=== PATIENT | female | born 1990 | race Caucasian/White ===

== ENCOUNTER 2016-12-18 16:28 | Emergency (ER) | payer OTHER ==
[~2016-12-18] VITALS: Ht 160 cm; Wt 68.0 kg
[~2016-12-18 16:28] MED LIST: IBUP200T77 PO; NAPR500T3 PO
[2016-12-18 16:36] VITALS: BP 126/80
[2016-12-18 16:52] LABS: BILIRUBIN,URINE NEGATIVE (NEG); GLUCOSE,URINE NEGATIVE (NEG); NITRITE,URINE NEGATIVE (NEG); PH,URINE 5.5; PROTEIN,URINE NEGATIVE (NEG-TRACE); UROBILINOGEN,URINE 0.2 mg/dL (0.2 mg/dL)
--- NOTE | 2016-12-18 16:53 | PHYS DOC ---
Past Medical History Past Medical History: Hyperthyroid Additional Past Medical Histor: SVT, graves, heart murmur Past Surgical History: Other Additional Past Surgical Histo: THYROID REMOVAL, L ELBOW, L KNEE Alcohol Use: None Drug Use: None Adult General Chief Complaint Chief Complaint: PAIN ON URINATION [facility] HPI Patient is a 26 year old female with no significant medical history who presents with dysuria for 5 days. Patient denies any hematuria. Denies any urgency or frequency. Denies flank pain, abdominal pain nausea vomiting. Denies any chance she is , she states her last menstrual cycle was October, and she is on control and her periods are irregular. Review of Systems Review of Systems Constitutional: Denies fever or chills [] Eyes: Denies change in visual acuity, redness, or eye pain [] HENT: Denies nasal congestion or sore throat [] Respiratory: Denies cough or shortness of breath [] Cardiovascular: No additional information not addressed in HPI [] GI: Denies abdominal pain, nausea, vomiting, bloody stools or diarrhea [] : Dysuria Musculoskeletal: Denies back pain or joint pain [] Integument: Denies rash or skin lesions [] Neurologic: Denies headache, focal weakness or sensory changes [] Endocrine: Denies polyuria or polydipsia [] Allergies Allergies Allergies Coded Allergies Type Severity Reaction Last Updated Verified neomycin Allergy Intermediate rash 12/09/13 Yes codeine Adverse Reaction Intermediate nausea 09/08/14 Yes Physical Exam Physical Exam Constitutional: Well developed, well nourished, no acute distress, non-toxic appearance. [] HENT: Normocephalic, atraumatic, bilateral external ears normal, oropharynx moist, no oral exudates, nose normal. [] Eyes: PERRLA, EOMI, conjunctiva normal, no discharge. [] Neck: Normal range of motion, no tenderness, supple, no stridor. [] Cardiovascular:Heart rate regular rhythm, no murmur [] Lungs & Thorax: Bilateral breath sounds clear to auscultation [] Abdomen: Bowel sounds normal, soft, no tenderness, no masses, no pulsatile masses. [] Skin: Warm, dry, no erythema, no rash. [] Back: No tenderness, no CVA tenderness. [] Extremities: No tenderness, no cyanosis, no clubbing, ROM intact, no edema. [] Neurologic: Alert and oriented X 3, normal motor function, normal sensory function, no focal deficits noted. [] Psychologic: Affect normal, judgement normal, mood normal. [] Current Patient Data Vital Signs Vital Signs Date Time Temp Pulse Resp B/P Pulse Ox O2 Delivery O2 Flow Rate FiO2 12/18/16 16:36 98.6 79 16 100 Room Air 98.6 Lab Values Laboratory Tests Test 12/18/16 15:53 12/18/16 16:45 POC Urine HCG, Qualitative Hcg positive (Negative) Urine Collection Type Unknown Urine Color Yellow Urine Clarity Clear Urine pH 5.5 Urine Specific Arnold 1.015 Urine Protein Negativemg/dL (NEG-TRACE) Urine Glucose (UA) Negativemg/dL (NEG) Urine Ketones (Stick) Negativemg/dL (NEG) Urine Blood Negative (NEG) Urine Nitrite Negative (NEG) Urine Bilirubin Negative (NEG) Urine Urobilinogen Dipstick 0.2mg/dL (0.2 mg/dL) Urine Leukocyte Esterase Moderate (NEG) Urine RBC 0/HPF (0-2) Urine WBC 20-40/HPF (0-4) Urine Squamous Epithelial Cells Mod/LPF Urine Bacteria Mod/HPF (0-FEW) Urine Mucus Mod/LPF EKG EKG [] Radiology/Procedures Radiology/Procedures [] Course & Med Decision Making Course & Med Decision Making Pertinent Labs and Imaging studies reviewed. (See chart for details) Patient is in the ED with complaints of dysuria. Positive urine hCG, discharged with cephalexin and instructed to follow-up with FOREIGN LANGUAGE INSTRUCTOR as soon as possible. Provided return precautions and discharged in stable condition. Dragon Disclaimer Dragon Disclaimer This electronic medical record was generated, in whole or in part, using a voice recognition dictation system. Departure Departure Impression: Primary Impression: Urinary tract infection Additional Impression: Disposition: 01 HOME, SELF-CARE Condition: STABLE Referrals: NANI MELTON DO (PCP) GABRIELA SU MD Follow-up with your FOREIGN LANGUAGE INSTRUCTOR or the provided FOREIGN LANGUAGE INSTRUCTOR as soon as possible Patient Instructions: ABCs of , - Urinary Tract Infection Additional Instructions: Your test in the emergency room was positive. He also have urinary tract infection. We discharged with antibiotics. Make sure you complete them. Start taking vitamins. Follow-up with an FOREIGN LANGUAGE INSTRUCTOR as soon as possible. Come back to the ED if you have any concerning symptoms. Scripts Cephalexin 500 Mg Tablet1 Tab PO BID #14 TAB Prov:LIO TAPIA APRN 12/18/16 Problem Qualifiers Primary Impression: Urinary tract infection Urinary tract infection type: site unspecified Hematuria presence: without hematuria Qualified Code: N39.0 - Urinary tract infection, site not specified Additional Impression: Weeks of gestation: less than 8 weeks Qualified Code: Z3A.01 - Less than 8 weeks gestation of LIO TAPIA APRN Dec 18, 2016 16:53
[2016-12-18 17:22] LABS: BACTERIA,URINE MOD /HPF (0-FEW); RBC,URINE 0 /HPF (0-2); SQUAMOUS EPITHELIAL CELL,UR MOD /LPF; WBC,URINE 20-40 /HPF (0-4)
[2016-12-18] MEDS ORDERED: CEPH500T PO (17:39)
== END 2016-12-18 17:50 | disposition home or self-care (01) ==
LOC: ER 16:28
DX: O23.41 Unspecified infection of urinary tract in pregnancy, first trimester (principal); E89.0 Postprocedural hypothyroidism; Z3A.01 Less than 8 weeks gestation of pregnancy; Z88.5 Allergy status to narcotic agent; Z88.1 Allergy status to other antibiotic agents
CPT/HCPCS: 81001; 81025; 99283

== ENCOUNTER 2017-08-05 19:27 | Emergency (ER) | payer SELFPAY ==
[~2017-08-05] VITALS: Ht 160 cm; Wt 65.8 kg
[~2017-08-05 19:27] MED LIST changes: +CEPH500T PO; -NAPR500T3 PO; +NAPR500T4 PO
[2017-08-05 19:30] VITALS: BP 98/55
--- NOTE | 2017-08-05 20:45 | PHYS DOC ---
Past Medical History Past Medical History: Hyperthyroid Additional Past Medical Histor: SVT, graves, heart murmur Past Surgical History: Other Additional Past Surgical Histo: THYROID REMOVAL, L ELBOW, L KNEE Alcohol Use: None Drug Use: None Adult General Chief Complaint Chief Complaint: ANKLE PROBLEM HPI HPI Patient is a 26 year old female percents to the emergency department stating that she was trying to help a friend do some holster core when she was on a ladder and the ladder started twinkle and so she jumped off the ladder. She states that she is having right lateral ankle pain and discomfort. She is able to ambulate with no difficulty. She does state that the tenderness is on the lateral side with no knee tenderness. She has not taken anything for pain and discomfort denies any numbness or tingling into the toes. Review of Systems Review of Systems Constitutional: Denies fever or chills [] Eyes: Denies change in visual acuity, redness, or eye pain [] HENT: Denies nasal congestion or sore throat [] Respiratory: Denies cough or shortness of breath [] Cardiovascular: No additional information not addressed in HPI [] GI: Denies abdominal pain, nausea, vomiting, bloody stools or diarrhea [] : Denies dysuria or hematuria [] Musculoskeletal: Denies back pain. right ankle pain Integument: Denies rash or skin lesions [] Neurologic: Denies headache, focal weakness or sensory changes [] Endocrine: Denies polyuria or polydipsia [] All other systems were reviewed and found to be within normal limits, except as documented in this note. Allergies Allergies Allergies Coded Allergies Type Severity Reaction Last Updated Verified neomycin Allergy Intermediate rash 12/09/13 Yes codeine Adverse Reaction Intermediate nausea 09/08/14 Yes Physical Exam Physical Exam Constitutional: Well developed, well nourished, no acute distress, non-toxic appearance. [] HENT: Normocephalic, atraumatic, bilateral external ears normal, oropharynx moist, no oral exudates, nose normal. [] Eyes: PERRLA, EOMI, conjunctiva normal, no discharge. [] Neck: Normal range of motion, no tenderness, supple, no stridor. [] Cardiovascular:Heart rate regular rhythm, no murmur [] Lungs & Thorax: Bilateral breath sounds clear to auscultation [] Skin: Warm, dry, no erythema, no rash. [] Extremities: No right knee tenderness, no cyanosis, no clubbing, ROM intact, no edema. Right lateral ankle tenderness noted, no swelling, no discoloration noted , peripheral pulses 2+ cap refill brisk < 2 seconds. Neurologic: Alert and oriented X 3, normal motor function, normal sensory function, no focal deficits noted. [] Psychologic: Affect normal, judgement normal, mood normal. [] Current Patient Data Vital Signs Vital Signs Date Time Temp Pulse Resp B/P (MAP) Pulse Ox O2 Delivery O2 Flow Rate FiO2 08/05/17 19:30 98.1 76 16 98 Room Air 98.1 EKG EKG [] Radiology/Procedures Radiology/Procedures [] Course & Med Decision Making Course & Med Decision Making Pertinent Labs and Imaging studies reviewed. (See chart for details) Right ankle x-rays were negative per Dr. Proctor. Patient will be placed in an David wrap and an air stirrup splint with recommendations for Tylenol and ibuprofen for pain and discomfort. Recommended ice packs on 20 minutes off 20 minutes several times a day. Elevation as much as possible. Recommended to wear the David wrap for the next 5-7 days in the Air-Stirrup splint for the next 7-10 days. Recommended she follow up with orthopedic in the next week. Signs and symptoms to return back to emergency department has been provided. All questions and concerns have been answered the patients bedside. []I've spoken with the patient and/or caregivers. I've explained the patient's condition, diagnosis and treatment plan based on information available to me at this time. I've answered the patient's and/or caregivers questions and addressed any concerns. The patient and/or caregivers have a good understanding the patient's diagnosis, condition and treatment plan as can be expected at this point. Vital signs have been stabilized. The patient's condition is stable for discharge from the emergency department. The patient will pursue further outpatient evaluation with her primary care provider or other designated consulting physician as outlined in the discharge instructions. Patient and/or caregivers are agreeable to this plan of care and follow-up instructions have been explained in detail. The patient and/or caregivers have received these instructions in written format and expressed understanding of these discharge instructions. The patient and her caregivers are aware that if any significant change in condition or worsening of symptoms should prompt him to immediately return to this of the closest emergency department. If an emergent department is not readily available I would encourage him to call 911. Loraon Disclaimer Dragon Disclaimer This electronic medical record was generated, in whole or in part, using a voice recognition dictation system. Departure Departure Impression: Primary Impression: Ankle sprain Disposition: HOME, SELF-CARE Condition: STABLE Referrals: NANI MELTON DO (PCP) JOVI OVALLES MD Patient Instructions: Ankle Sprain, [id number] Additional Instructions: Activity as tolerated Tylenol or Ibuprofen for pain and discomfort Ice packs on 20 minutes and off 20 minutes several times a day Elevation as much as possible Wear the david wrap for the next 5-7 days Wear the air stirrup splint for the next 7-10 days Followup with orthopedic in 7-10 days Return to emergency department as needed for signs and symptoms that become worse. Problem Qualifiers Primary Impression: Ankle sprain Encounter type: initial encounter Laterality: right KAYLAH PORTILLO APRN Aug 05, 2017 20:45
--- NOTE | 2017-08-06 08:00 | RAD ---
ANKLE RIGHT 3V History:right ankle injury, pain laterally, twisted ankle Comparison: 06/01/2014 Findings:3 views right ankle are submitted. No acute fracture or dislocation is identified. Impression: 1.No acute osseous abnormality is identified.
== END 2017-08-05 20:50 | disposition home or self-care (01) ==
LOC: ER 19:27
DX: S93.401A Sprain of unspecified ligament of right ankle, initial encounter (principal); E05.90 Thyrotoxicosis, unspecified without thyrotoxic crisis or storm; Z88.1 Allergy status to other antibiotic agents; Z88.5 Allergy status to narcotic agent; X50.9XXA Other and unspecified overexertion or strenuous movements or postures, initial encounter; Y93.39 Activity, other involving climbing, rappelling and jumping off; Y92.89 Other specified places as the place of occurrence of the external cause; Y99.8 Other external cause status
CPT/HCPCS: 29515; 73610; 99284-25